=== PATIENT | male | born 1960 | race Caucasian/White ===

== ENCOUNTER 2019-12-10 18:07 | Emergency (ER) | payer OTHER ==
[2019-12-10] MEDS ORDERED: XYLOCAINE 2% HCL 20 ML MDV IJ ONE (18:08)
[2019-12-10] MEDS ORDERED: XYLOCAINE 2% HCL 20 ML MDV ONE (18:30)
--- NOTE | 2019-12-11 09:01 | XRAY ---
Indication: Laceration. Comparison: None 3 views of the left 2nd finger demonstrates mild soft tissue swelling/laceration over the PIP. No other bony, articular, or soft tissue abnormalities.
== END 2019-12-10 18:45 | disposition home or self-care (01) ==
LOC: ED 18:07
DX: S61.211A Laceration without foreign body of left index finger without damage to nail, initial encounter (principal); W31.2XXA Contact with powered woodworking and forming machines, initial encounter; S60.413A Abrasion of left middle finger, initial encounter
CPT/HCPCS: 12002; 73140; 99282